=== PATIENT | male | born 1965 | race Caucasian/White ===

== ENCOUNTER 2019-09-12 07:46 | Day surgery (SDC) | payer OTHER ==
[~2019-09-12] VITALS: Ht 185.4 cm; Wt 130.6 kg
[2019-09-12] MEDS ORDERED: ELIQUIS5 MG PO (08:08)
[2019-09-12] MEDS ORDERED: TOPROL XL25 MG PO (08:09)
[2019-09-12] MEDS ORDERED: ZESTRIL10 MG PO (08:09)
--- NOTE | 2019-09-12 09:38 | NUR ---
09/12/19 0938 Lizeth Last 0948 PATIENT ARRIVES TO PACU RESTING WITH EYES CLOSED. WAKES UP WITH VERBAL STIMULI. NC AT 2 LITERS, OFF ON ARRIVAL TO PACU. RESP EVEN AND UNLABORED, SNORING AT TIMES.
--- NOTE | 2019-09-12 14:14 | NUR ---
PT IS ALERT, ORIENTED AND HERE FOR HIS FIRST SCOPE. [place], DID PREP IN A MOTEL-SEEMED TO DO WELL. QUESTIONS ASKED AND ANSWERED, PT DESIRED PRAYER.
--- NOTE | 2019-09-13 07:46 | OR ---
[facility] [address], [place] [address] Signed DATE OF OPERATION: 09/12/2019 SURGEON: Mary Lou Busch MD PREOPERATIVE DIAGNOSES: 1. Maternal great grandmother with colon cancer. 2. Maternal uncles and aunts with colonic polyps. POSTOPERATIVE DIAGNOSES: 1. A 4 mm rectal polyps x2 at 6 cm. 2. A 4 mm polyp at 100 cm. 3. A 4 mm polyp at proximal right colon. 4. A 4 mm polyp at 30 cm. 5. Minimal to moderate sigmoid diverticulosis. PROCEDURE: Colonoscopy with hot biopsy. ESTIMATED BLOOD LOSS: None. INDICATIONS: Katherine is a 54-year-old gentleman, asked to see me for his initial colonoscopy. He is not aware of his father history. He has no siblings. However, his maternal great grandmother had colon cancer. Also his maternal aunts and uncles have all had colonic polyps. He really has no lower GI complaints. In the office, I gave him a pamphlet on colonoscopy. We looked at that together in detail. He understands the nature of the test along with the risks including, but not limited to gas bloating, crampy abdominal pain, bleeding, perforation requiring surgery, and missed diagnosis. He also understands the need for IV conscious sedation. He had expressed understanding and wished to proceed. DESCRIPTION OF PROCEDURE: Katherine was taken into our endoscopy suite and placed in the left lateral decubitus position. He was given IV sedation with 9 mg of Versed and 175 mcg of fentanyl. A digital rectal exam was performed and this was unremarkable. The adult colonoscope was introduced and advanced under direct visualization of camera. He did use some extra sedation and abdominal compression in order to advance the scope into the cecum itself. When adequately sedated, the scope passed quite readily. His prep was good. We could easily see the appendiceal orifice and the ileocecal valve. The scope was slowly Electronically Signed By: MARY LOU BUSCH MD 09/13/19 0746 PATIENT NAME: KATHERINE ELKINS OPERATIVE REPORT DATE OF : 69 REPORT #: [id number] PHYSICIAN: MARY LOU BUSCH MD PCP: JANETTE ABBASI REPORT IS CONFIDENTIAL AND NOT TO BE RELEASED WITHOUT AUTHORIZATION [facility] [address], [place] [address] Signed withdrawn. The above-mentioned polyps were easily removed with hot biopsy forceps. He does have diverticula in the sigmoid colon. They were minimal to moderate in size, minimal to moderate in number, and scattered about. In the rectum, the scope had been retroflexed and really no issues above the anal canal. After this, the gas was suctioned out and the colonoscope removed. Katherine tolerated procedure quite well. RECOMMENDATIONS: I will see Katherine back in my office in 7 to 14 days to review his results. He will probably need colonoscopy every 5 years based on his family history. Mary Lou Busch MD ALB/MODL /[id number] cc: MD Janette Dominguez PA Copies: MARY LOU BUSCH MD, DAVID PA ~ Electronically Signed By: MARY LOU BUSCH MD 09/13/19 0746 PATIENT NAME: KATHERINE ELKINS OPERATIVE REPORT DATE OF : 69 REPORT #: [id number] PHYSICIAN: MARY LOU BUSCH MD PCP: JANETTE ABBASI REPORT IS CONFIDENTIAL AND NOT TO BE RELEASED WITHOUT AUTHORIZATION
--- NOTE | 2019-09-13 16:37 | PATH ---
[facility] [address], [place] [address] Signed SPECIMEN(S): A RECTAL POLYP AT 6 CM SPECIMEN(S): B COLON POLYP AT 100 CM SPECIMEN(S): C PROXIMAL ASCENDING POLYP SPECIMEN(S): D COLON POLYP AT 30 CM SPECIMEN SOURCE: A. RECTAL POLYP AT 6 CM B. COLON POLYP AT 100 CM C. PROXIMAL ASCENDING POLYP D. COLON POLYP AT 30 CM CLINICAL HISTORY: Screening colonoscopy, family history of colon CA. Postop: Diverticulosis, rectal and colon polyps. MICROSCOPIC DESCRIPTION: Histologic sections of all submitted blocks are examined by light microscopy. These findings, together with the gross examination, support the pathologic diagnosis. FINAL PATHOLOGIC DIAGNOSIS: A. Rectum, polyp at 6 cm, polypectomy: - Tubular adenoma. - Negative for high-grade dysplasia or malignancy. B. Colon, polyp at 100 cm, polypectomy: - Tubular adenoma. - Negative for high-grade dysplasia or malignancy. C. Colon, proximal ascending, polyp, polypectomy: - Tubular adenoma. - Negative for high-grade dysplasia or malignancy. D. Colon, polyp at 30 cm, polypectomy: - Fragments of colonic mucosa with no histopathologic abnormality. - Negative for dysplasia or malignancy. NAL:cml:C2NR GROSS DESCRIPTION: Four specimens are received in four containers, labeled "DB." A. The specimen, labeled "DB, 1," and designated on the requisition "rectal polyp at 6 cm," is received in formalin and consists of three spencer soft tissue polypoid fragments that measure 0.4 cm in greatest dimension. The specimen is entirely submitted in cassette (A1). B. The specimen, labeled "DB, 2," and designated on the requisition "colon PATIENT NAME: KATHERINE ELKINS PATHOLOGY DATE OF : 69 REPORT #: [id number] PHYSICIAN: AB PATHOLOGY PCP: JANETTE ABBASI REPORT IS CONFIDENTIAL AND NOT TO BE RELEASED WITHOUT AUTHORIZATION [facility] [address], [place] [address] Signed polyp at 100 cm," is received in formalin and consists of two spencer soft tissue polypoid fragments that measure 0.4 cm in greatest dimension. The specimen is entirely submitted in cassette (B1). C. The specimen, labeled "DB, 3," and designated on the requisition "proximal ascending polyp," is received in formalin and consists of one spencer soft tissue fragment that measures 0.3 cm in greatest dimension. The specimen is entirely submitted in cassette (C1). D. The specimen, labeled "DB, 4," and designated on the requisition "colon polyp at 30 cm," is received in formalin and consists of two spencer soft tissue polypoid fragments that measure 0.3 cm in greatest dimension. The specimen is entirely submitted in cassette (D1). AT (under the direct supervision of a pathologist) The Gross Description was prepared using a voice recognition system. The report was reviewed for accuracy; however, sound-alike word errors, addition and/or deletions may occur. If there is any question about this report, please contact Client Services. PERFORMING LABORATORY: The technical component was performed by [facility], [address] [place] [id number] (Medical Assisting Instructor: Jacqueline Yusuf MD; CLIA# [id number]). [facility], [address], [place] [address] (IA# [id number]). Diagnostician: Eli Laboy MD Pathologist Electronically Signed 09/13/2019 Copies: ~ PATIENT NAME: KATHERINE ELKINS PATHOLOGY DATE OF : 69 REPORT #: [id number] PHYSICIAN: AB PATHOLOGY PCP: JANETTE ABBASI REPORT IS CONFIDENTIAL AND NOT TO BE RELEASED WITHOUT AUTHORIZATION
== END 2019-09-12 10:50 | disposition home or self-care (01) ==
LOC: OPS 07:46 → DS 07:46 → OPS 08:15 → DS 09:00 → OPS 09:00
PROVIDERS: Colon & Rectal Surgery
PROC: 0DBE8ZZ Excision of Large Intestine, Via Natural or Artificial Opening Endoscopic (ICD-10-PCS; 2019-09-12)
PROC: 0DBP8ZZ Excision of Rectum, Via Natural or Artificial Opening Endoscopic (ICD-10-PCS; 2019-09-12)
PROC: 0DBK8ZZ Excision of Ascending Colon, Via Natural or Artificial Opening Endoscopic (ICD-10-PCS; principal; 2019-09-12 08:45)
DX: Z12.11 Encounter for screening for malignant neoplasm of colon (principal); D12.8 Benign neoplasm of rectum; D12.2 Benign neoplasm of ascending colon; D12.6 Benign neoplasm of colon, unspecified; K57.30 Diverticulosis of large intestine without perforation or abscess without bleeding; I10 Essential (primary) hypertension; I48.91 Unspecified atrial fibrillation; E78.5 Hyperlipidemia, unspecified; F17.200 Nicotine dependence, unspecified, uncomplicated
CPT/HCPCS: 99153; G0500; J2250; J3010; J7121